=== PATIENT | female | born 1950 ===

== ENCOUNTER 2018-03-22 08:43 | Inpatient (IN) | payer OTHER ==
[~2018-03-22] VITALS: Ht 160 cm; Wt 70.3 kg
[2018-03-22] MEDS ORDERED: METOPROLOL TART50 MG PO (11:45)
[2018-03-22] MEDS ORDERED: RANEXA1000 MG PO (11:46)
[2018-03-22] MEDS ORDERED: PLAVIX75 MG PO (11:47)
[2018-03-22] MEDS ORDERED: ZETIA10 MG PO (11:47)
[2018-03-22] MEDS ORDERED: HYSINGLA ER60 MG PO (11:49)
[2018-03-22] MEDS ORDERED: ZOLPIDEM TARTRA10 MG PO (11:50)
[2018-03-22] MEDS ORDERED: CLONAZEPAM1 MG PO (11:50)
== END 2018-03-23 21:30 | disposition home or self-care (01) | DRG 446 ==
LOC: MEDJ 08:43 → SURH 08:43
PROVIDERS: Internal Medicine Gastroenterology
PROC: 0FJB8ZZ Inspection of Hepatobiliary Duct, Via Natural or Artificial Opening Endoscopic (ICD-10-PCS; principal; 2018-03-23 13:00)
DX: K80.50 Calculus of bile duct without cholangitis or cholecystitis without obstruction (principal); I25.10 Atherosclerotic heart disease of native coronary artery without angina pectoris; I11.9 Hypertensive heart disease without heart failure; J44.9 Chronic obstructive pulmonary disease, unspecified; E78.4 Other hyperlipidemia; M81.0 Age-related osteoporosis without current pathological fracture